=== PATIENT | male | born 1995 | race Caucasian/White ===

== ENCOUNTER 2018-08-09 09:13 | Emergency (ER) | payer OTHER ==
[~2018-08-09] VITALS: Ht 180.3 cm; Wt 88.5 kg
[2018-08-09] MEDS ORDERED: Norco 5-325 Ta1 EACH PO (10:29)
== END 2018-08-09 10:54 | disposition home or self-care (01) ==
LOC: ER 09:13
DX: S93.401A Sprain of unspecified ligament of right ankle, initial encounter (principal); F17.200 Nicotine dependence, unspecified, uncomplicated; X58.XXXA Exposure to other specified factors, initial encounter
CPT/HCPCS: 29515; 73610; 73620; 99283-25